=== PATIENT | male | born 1950 | race Asian ===

== ENCOUNTER 2024-05-04 16:21 | Outpatient (REF) | payer MEDICAID, SELFPAY ==
--- NOTE | ~2024-05-04 | XR_ITS ---
EXAMINATION: XR CHEST CLINICAL INFORMATION: J44.9 - Chronic obstructive pulmonary disease, unspecified COMPARISON: None available. TECHNIQUE: 2 views of the chest were obtained. FINDINGS: Hyperinflated lungs. Pulmonary reticular pattern. Bilateral apical lung scarring. No consolidation, pleural effusion or pneumothorax. Cardiomediastinal silhouette is normal in size with calcified plaque aortic arch. Multilevel thoracic spondylosis. S-shaped curvature of the thoracic spine. Vascular clips in the right upper quadrant abdomen. XR/XR chest 2V IMPRESSION: Chronic interstitial lung disease without acute airspace disease. Electronically signed by: Que Albarran MD 05/05/2024 07:22 AM EST
== END 2024-05-04 16:22 | disposition home or self-care (01) ==
LOC: HO.XRAY 16:21
PROVIDERS: PCP Nurse Practitioner Family; Visit Provider Internal Medicine
DX: J44.9 Chronic obstructive pulmonary disease, unspecified (principal); J84.9 Interstitial pulmonary disease, unspecified; R05.9 Cough, unspecified; R06.02 Shortness of breath; Z87.891 Personal history of nicotine dependence; Z79.899 Other long term (current) drug therapy
CPT/HCPCS: 71046; 99202

== ENCOUNTER → 2024-05-04 17:05 | Outpatient (BNV) | payer MEDICAID, SELFPAY | PROVIDERS: PCP Nurse Practitioner Family; Visit Provider Radiology Diagnostic Radiology | DX: J44.9 Chronic obstructive pulmonary disease, unspecified (principal) | CPT/HCPCS: 71046 ==

== ENCOUNTER 2024-06-01 09:25 | Outpatient (AMB) | payer MEDICAID, SELFPAY ==
[2024-06-01 09:31] VITALS: BP 102/50; PULSE 80; O2SAT 97; BMI 24.3
--- NOTE | 2024-06-01 09:31 | MHC.OFFVIS ---
Vital Signs 06/01/24 09:31 Height 5 ft 7 in Weight 155 lb 6.814 oz BMI 24.3 BP 102/50 L Blood Pressure Location Lt brachial Position Sitting Pulse 80 Pulse Source Pulse Oximeter Pulse Oximetry (%) 97 Oxygen Delivery Method Room Air Intake Visit Reasons: Cough Intake Note: pt is here for follow up and states he is better but still with a cough that has phlegm Medical Records Administrator Required: No Allergies No Known Allergies Allergy (Verified 06/01/24 09:57) Medication List - Last Reconciled 06/01/24 by Norma Loera MD albuterol sulfate 90 mcg/actuation (Ventolin HFA) 2 puffs inhalation Q4H PRN atorvastatin 20 mg PO BEDTIME budesonide-formoterol 160-4.5 mcg/actuation (Symbicort) 2 puffs inhalation BID Do you need a note to return to daycare/school/sports/work: No HPI HPI Cough: Details: This 74 years old very pleasant gentleman is here for follow-up. Since his last visit and using Symbicort twice a day his breathing did improve significantly. He has less shortness of breath on exertion. Cough was almost gone. Now for the last 2 days he is having a scratchy feeling in the throat with increased cough. Has difficulty in expectorating the mucus. [facility] Medical History (Updated 06/01/24 @ 10:06 by Norma Loera MD) ILD (interstitial lung disease) COPD (chronic obstructive pulmonary disease) Social History Patient Tobacco Use Status: Former Tobacco user Review of Systems Const All systems reviewed & are unremarkable except as noted in HPI and below Eyes Reports no additional complaints ENT Reports no additional complaints Card Denies chest pain, Denies irregular heart rhythm and Denies dyspnea on exertion Resp Reports as per HPI and Denies dyspnea on exertion GI Reports no additional complaints Reports nocturia Musc Reports no additional complaints Skin/Breast Reports system reviewed and no additional complaints, except as documented Psych Reports no additional complaints Endo Reports no additional complaints Aller/Immun Reports no additional complaints Physical Exam Vital Signs: Last Vital Signs Pulse 80 06/01/24 09:31 BP 102/50 L 06/01/24 09:31 Pulse Ox 97 06/01/24 09:31 Oxygen Delivery Method Room Air 06/01/24 09:31 BMI result Body Mass Index 24.3 Const General: healthy appearing, comfortable, no acute distress, alert and awake Orientation/consciousness: patient oriented x3 HEENT Head: Yes normal to inspection General nose exam: No nasal polyps present and No nasal discharge present Face and sinus: Yes sinuses nontender Mouth: oropharynx normal Throat: Yes posterior oropharynx normal Eyes General: appearance normal, both eyes and all related structures Neck Neck: Yes normal visual inspection, Yes no lymphadenopathy, Yes trachea midline and Yes no JVD Thyroid: Thyroid normal Chest Chest palpation & inspection: normal inspection of the chest, normal palpation of entire chest wall and no tenderness Resp Other: PERCUSSION NOTE IS RESONANT. BREATH SOUNDS ARE DISTANT WITH PROLONGED EXPIRATORY PHASE ON BOTH SIDES. NO WHEEZES OR RHONCHI ARE HEARD AT THIS TIME Cardio Palpation: normal PMI Rate: regular rate Rhythm: regular rhythm Heart sounds: no gallops and no murmurs Peripheral pulses: Peripheral pulses 2+ throughout GI Palpation (GI): Soft to palpation, nontender, No hepatosplenomegaly present and no masses Auscultation: normal bowel sounds Back/Spine/Pelvis Thoracic/Lumbar Spine: thoracic and lumbar spine normal to inspection Skin General skin exam: no rashes or lesions noted Neuro General: patient oriented x3 and no focal motor deficits Cranial nerves: Yes CN's II-XII intact bilaterally Extrem General: Yes normal to inspection, Yes no clubbing, cyanosis or edema and Yes no calf tenderness Psych Appearance: grossly normal and well kempt Speech and movement: Normal speech and movement present Results Reviewed Results Reviewed: Chest x-ray showed hyperinflation and increased bronchovascular markings on both sides suggesting possible interstitial disease in addition to COPD. On my review of the chest x-ray, I think it is increased bronchovascular markings with thickened bronchial jewell indicating chronic airway disorder. Spirometry on his last visit had shown moderate degree of obstructive airway disorder, but bronchodilator challenge and diffusion capacity etc. was not done. Assessment & Plan Assessment & Plan (1) COPD (chronic obstructive pulmonary disease): Comment: He has symptoms of dyspnea on exertion and intermittent cough. This has been going on for more than 20 years, while he was living in [place] . He was recently started on Symbicort 2 puffs b.i.d. which has helped. SPIROMETRY PERFORMED IN THE OFFICE TODAY IS CONSISTENT WITH MODERATELY SEVERE OBSTRUCTIVE AIRWAY DISORDER. With the use of Symbicort he has been feeling better. Today he appears to have increased bronchial irritation and may be coming with acute exacerbation. Code(s): J44.9 - Chronic obstructive pulmonary disease, unspecified Category: Medical Plan: I think we should get complete pulmonary function test to include lung volumes and diffusion capacity also. Continue Symbicort 160-4.52 puffs b.i.d.. Albuterol HFA 2 puffs Q 6 hours only p.r.n.. Mucinex 400 mg b.i.d. if he has any issue with the mucus. Will treat him with a short course of low-dose prednisone to avoid any acute exacerbation. Orders: Orders PFT pulmonary function test Today J44.9 - Chronic obstructive pulmonary disease, unspecified, J84.9 - Interstitial pulmonary disease, unspecified Medications: New prednisone 20 mg PO DAILY 7 tabs 0RF copd excerbation 7 days budesonide-formoterol 160-4.5 mcg/actuation 2 puffs inhalation BID 10.2 grams 5RF COPD 30 days Coding Level of Care Code Est Pt Level 3 (28909) Diagnoses COPD (chronic obstructive pulmonary disease) J44.9
--- OUTSIDE RECORDS SUMMARY | 2024-06-01 10:34 | XMS_ITS | Clinical Summary ---
Author Organization [facility] Address [address] [place] [address] Care Team Providers Care Timekeeping Supervisor Name Role Phone Unavailable Primary Care Provider Unavailabl e Source Comments PLEASE NOTE, if this patient is a minor, it may be UNLAWFUL to discuss sensitive information that is contained in these records (such as FAMILY PLANNING, MENTAL HEALTH or SUBSTANCE ABUSE) with the minor patient's parent or other person without the patient's specific authorization.[facility] Allergies No known active allergies Medications budesonide-formo teroL (SYMBICORT) 160-4.5 mcg/actuation inhalerIndicatio ns:Wheezing Inhale 2 Puffs into the lungs 2 (two) times daily 30.6 g 1 4 Active albuterol HFA 90 mcg/actuation inhalerIndicatio ns:Wheezing Inhale 2 Puffs into the lungs every 4 (four) hours as needed for wheezing 18 g 1 4 Active inhalational spacing deviceIndication s:Wheezing UAD 1 Each 1 4 Active tamsulosin (FLOMAX) 0.4 mg 24 hr capsuleIndicatio ns:Urinary incontinence, unspecified type Take 1 Capsule by mouth once daily 90 Capsule 1 4 Active atorvastatin (LIPITOR) 20 mg tabletIndication s:Hypercholester olemia Take 1 Tablet by mouth nightly at bedtime 90 Tablet 2 4 Active Active Problems Problem Noted Date Diagnosed Date Hypercholesterolemia 03/04/2024 Urinary incontinence 03/02/2024 Wheezing 03/02/2024 Prediabetes 03/02/2024 Encounters Date Type Department Care Team Description 03/04/2024 Interim Notes [address] [phone] Jethro Blue FNP Prediabetes (Primary Dx); Hypercholesterolemia from Last 3 Months Immunizations Name Administration Dates Next Due Hep B,adult,adjuvanted (HEPLISAV) 12/14/2023 Influenza (FLUZONE), high-dose, trivalent, PF PNEUMOCOCCAL CONJUGATE PCV 20 (Prevnar) 03/02/20 24 Social History Tobacco Use Types Packs/Day Years Used Date Smoking Tobacco: Former Cigarettes 1 24 0 03/30/1969 - 03/30/1993 Passive Smoke Exposure: Never Smokeless Tobacco: Never Alcohol Use Standard Drinks/Week Comments Never 0 (1 standard drink = 0.6 oz pur e alcohol) Social Connections Answer Date Recorded Connectedness 0 03/02/2024 Financial Resource Strain Answer Date R ecorded Financial Resource Strain 0 2023 Stress Answer Date Recorded Stress 0 03/02/2024 Physical Activity Answer Date Recorded Physical Activity 0 03/02/2024 Food Insecurity Answer Date Recorded Food 0 03/02/2024 Transportation Needs Answer Date Record ed Transportation 0 03/02/2024 Housing Stability Answer Date Recorded Housing 0 03/02/2024 Safety and Environment Answer Date Rusty rded Safety 0 03/02/2024 Utilities Answer Date Recorded Utilities 0 03/02/2024 Employment Answer Date Recorded Stress 0 03/02/2024 Sex and Gender Information Value Date Recorded Sex Assigned at Male 03/02/2024 7:52 AM PST Legal Sex Male 9:00 AM PST Gender Identity Male 03/02/2024 9:49 AM PST Sexual Orientation Straight 03/02/2024 7: 52 AM PST Last Filed Vital Signs Vital Sign Reading Time Taken Comments Blood Pressure 154/77 03/02/2024 10:50 AM EST Pulse 75 03/02/2024 10:50 AM EST Temperature 37.2 ??C (98.9 ??F) 03/02/2024 10:[address] Respiratory Rate 14 03/02/2024 10:50 AM EST Oxygen Saturation - - Inhaled Oxygen Concentration - - Weight 68.5 kg (151 lb) 03/02/2024 10:50 AM EST Height 175.3 cm (5' 9 ) 03/02/2024 10:50 AM EST Body Mass Index 22.3 03/02/2024 10:50 AM EST Plan of Treatment Health Maintenance Due Date Last Done Comments Imm-DTaP/Tdap/Td (1 - Tdap) 1970 CT Colonography 1996 Colonoscopy 1996 Colorectal Cancer Screening 1996 FIT/gFOBT 1996 Fecal DNA 1996 Flexible Sigmoidoscopy 1996 Imm-Zoster, Recombinant (1 of 2) 2001 Abdominal Aortic Aneurysm Screening 2016 Falls Prevention 2016 Tip-PUANW-28 ( season) 2023 Alcohol and Drug Screen 03/30/2024 Depression Annual Screen 03/30/2024 Diabetes Screening 03/02/2025 03/02/2024, 03/02/2024 Hypertension Screening (#1) 03/02/2025 Lipid Screening 03/02/2025 03/02/2024 Tobacco Screening 03/02/2025 03/02/2024 Hepatitis C Screening Completed 03/02/2024 Imm-Influenza Completed 03/02/2024 Imm-Pneumococcal 65+ Completed 03/02/2024 Procedures Procedure Name Priority Date/Time Associated Diagnosis Comments HEPATITIS C AB W/RFLX HCV RNA, QT, RT PCR Routine 03/02/2024 12:21 PM EST Prediabetes COMPREHENSIVE METABOLIC PANEL Routine 03/02/2024 12:21 PM EST Prediabetes LIPID PANEL Routine 03/02/2024 12:21 PM EST Prediabetes from Last 3 Months or Most Recently Relevant to Health Maintenance Results * HEPATITIS C AB W/RFLX HCV RNA, QT, RT PCR (03/02/2024 12:21 PM EST) HEPATITIS C ANTIBODY NON-REACT BHUMI NON-REACT BHUMI [facility] Comment: HCV antibody was non-reactive. There is no laboratory evidence of HCV infection. In most cases, no further action is required. However, if recent HCV exposure is suspected, a test for HCV RNA (test code 98496) is suggested. For additional information please refer to http://education.Deluux/faq/FQU54g0 (This link is being provided for informational/ educational purposes only.) Blood Blood / Unknown 03/02/2024 1 2:21 PM EST 03/02/2024 12:22 PM EST Narrative [facility] - 03/04/2024 6:21 PM EST FASTING:NO Jethro Blue [facility] - BLOOD DRAW Edited R esult - Final [facility] [address] [address], [facility] [address] [place] [address] * (ABNORMAL) LIPID PANEL (03/02/2024 12:21 PM EST) [facility] CHOLESTEROL, TOTAL 232(H) <200 mg/dL [facility] HDL CHOLESTEROL 41 > OR = 40 mg/dL [facility] TRIGLYCERIDES 193(H) <150 mg/dL [facility] LDL-CHOLESTEROL 156(H) 99 mg/dL (calc) [facility] Comment: Reference range: <100 Desirable range <100 mg/dL for primary prevention; ?? <70 mg/dL for patients with CHD or diabetic patients with > or = 2 CHD risk factors. LDL-C is now calculated using the Nick-Chayito calculation, which is a validated novel method providing better accuracy than the Friedewald equation in the estimation of LDL-C. Nick SS et al. DELMAR. 2013;310(19): 7246-2515 (http://education.Kybalion/faq/YIZ906) CHOL/HDLC RATIO 5.7(H) <5.0 (calc) [facility] NON-HDL CHOLESTEROL 191(H) <130 mg/dL (calc) [facility] Comment: For patients with diabetes plus 1 major ASCVD risk factor, treating to a non-HDL-C goal of <100 mg/dL (LDL-C of <70 mg/dL) is considered a therapeutic option. Blood Blood / Unknown 03/02/2024 1 2:21 PM EST 03/02/2024 12:22 PM EST Narrative [facility] - 03/04/2024 6:21 PM EST FASTING:NO Jethro Blue [facility] - BLOOD DRAW Final Re sult Performing Organization Address [facility] de Phone Number [facility] [address] [address], [facility] [address] [place] [address] * (ABNORMAL) COMPREHENSIVE METABOLIC PANEL (03/02/2024 12:21 PM EST) GLUCOSE 88 65 - 139 mg/dL [facility] Comment: ?Non-fasting reference interval UREA NITROGEN (BUN) 22 7 - 25 mg/dL [facility] CREATININE (blood) 1.66(H) 0.70 - 1.28 mg/dL [facility] EGFR 44(L) > OR = 60 mL/min/1. 73m2 [facility] BUN/CREATININE RATIO 13 6 - 22 (calc) [facility] SODIUM 140 135 - 146 mmol/L [facility] POTASSIUM 5.1 3.5 - 5.3 mmol/L [facility] CHLORIDE 104 98 - 110 mmol/L [facility] CARBON DIOXIDE 29 20 - 32 mmol/L [facility] CALCIUM 9.8 8.6 - 10.3 mg/dL [facility] PROTEIN, TOTAL 7.4 6.1 - 8.1 g/dL [facility] ALBUMIN 5.0 3.6 - 5.1 g/dL [facility] GLOBULIN 2.4 1.9 - 3.7 g/dL (calc) [facility] ALBUMIN/GLOBULI N RATIO 2.1 1.0 - 2.5 (calc) [facility] BILIRUBIN, TOTAL 0.7 0.2 - 1.2 mg/dL [facility] ALKALINE PHOSPHATASE 62 35 - 144 U/L [facility] AST 25 10 - 35 U/L [facility] ALT 22 9 - 46 U/L [facility] Blood Blood / Unknown 03/02/2024 1 2:21 PM EST 03/02/2024 12:22 PM EST Narrative [facility] - 03/04/2024 6:21 PM EST FASTING:NO us Jethro Blue [employer] [facility] - BLOOD DRAW Edited R esult - Final Performing Organization Address City/[facility]/ZIP Co de Phone Number [facility] [address] [address], [facility] [address] [place] [address] from Last 3 Months or Most Recently Relevant to Health Maintenance Insurance [place] MEDICAID
== END 2024-06-01 10:00 | disposition home or self-care (01) ==
PROVIDERS: PCP Nurse Practitioner Family; Visit Provider Internal Medicine
DX: J44.9 Chronic obstructive pulmonary disease, unspecified (principal)
CPT/HCPCS: 99213

== ENCOUNTER → 2024-06-01 09:25 | Outpatient (BNVA) | payer MEDICAID, SELFPAY | PROVIDERS: PCP Nurse Practitioner Family; Visit Provider Internal Medicine | DX: J44.9 Chronic obstructive pulmonary disease, unspecified (principal); J84.9 Interstitial pulmonary disease, unspecified | CPT/HCPCS: 99212 ==

== ENCOUNTER 2025-01-12 09:17 | Outpatient (AMB) | payer MEDICAID, SELFPAY ==
[2025-01-12 09:27] VITALS: BP 110/58; PULSE 71; O2SAT 98; BMI 25.2
--- NOTE | 2025-01-12 09:27 | A.OFFVIS_ITS ---
Vital Signs 01/12/25 09:27 Height 5 ft 7 in Weight 160 lb 14.999 oz BMI 25.2 BP 110/58 L Blood Pressure Location Lt brachial Position Sitting Pulse 71 Pulse Source Pulse Oximeter Pulse Oximetry (%) 98 Oxygen Delivery Method Room Air Intake Visit Reasons: Cough Intake Note: pt is here for follow up visit Control Room Tender Required: No Plain Clothes Police Officer: Plain Clothes Police Officer offered & declined Allergies No Known Allergies Allergy (Verified 01/12/25 09:33) Medication List - Last Reconciled 01/12/25 by Norma Loera MD albuterol sulfate 90 mcg/actuation (Ventolin HFA) 2 puffs inhalation Q4H PRN atorvastatin 20 mg PO BEDTIME budesonide-formoterol 160-4.5 mcg/actuation 2 puffs inhalation BID 30 days inhalational spacing device ([employer] [facility] spacer) As directed tamsulosin 0.4 mg PO DAILY Do you need a note to return to daycare/school/sports/work: No HPI HPI Cough: Details: 74 years old gentleman, originally from [place], with remote past history of smoking, has moderately severe obstructive airway disorder. He is here for routine follow-up. [place] did have a bout of sore throat and cough which has resolved. He continues to use Symbicort 2 puffs b.i.d. regularly and Ventolin 2 puffs Q 6 hours only p.r.n. ( which is not that frequent) At present he is very stable, Has dry cough once in a while. [facility] Medical History ILD (interstitial lung disease) COPD (chronic obstructive pulmonary disease) Social History Patient Tobacco Use Status: Former Tobacco user Review of Systems Const All systems reviewed & are unremarkable except as noted in HPI and below Eyes Reports no additional complaints ENT Reports no additional complaints Card Denies chest pain, Denies irregular heart rhythm and Denies dyspnea on exertion Resp Reports as per HPI and Denies dyspnea on exertion GI Reports no additional complaints Reports nocturia Musc Reports no additional complaints Skin/Breast Reports system reviewed and no additional complaints, except as documented Psych Reports no additional complaints Endo Reports no additional complaints Aller/Immun Reports no additional complaints Physical Exam Vital Signs: Last Vital Signs Pulse 71 01/12/25 09:27 BP 110/58 L 01/12/25 09:27 Pulse Ox 98 01/12/25 09:27 Oxygen Delivery Method Room Air 01/12/25 09:27 BMI result Body Mass Index 25.2 Const General: healthy appearing, comfortable, no acute distress, alert and awake Orientation/consciousness: patient oriented x3 HEENT Head: Yes normal to inspection General nose exam: No nasal polyps present and No nasal discharge present Face and sinus: Yes sinuses nontender Mouth: oropharynx normal Throat: Yes posterior oropharynx normal Eyes General: appearance normal, both eyes and all related structures Neck Neck: Yes normal visual inspection, Yes no lymphadenopathy, Yes trachea midline and Yes no JVD Thyroid: Thyroid normal Chest Chest palpation & inspection: normal inspection of the chest, normal palpation of entire chest wall and no tenderness Resp Other: PERCUSSION NOTE IS RESONANT. BREATH SOUNDS ARE DISTANT WITH PROLONGED EXPIRATORY PHASE ON BOTH SIDES. NO WHEEZES OR RHONCHI ARE HEARD AT THIS TIME Cardio Palpation: normal PMI Rate: regular rate Rhythm: regular rhythm Heart sounds: no gallops and no murmurs Peripheral pulses: Peripheral pulses 2+ throughout GI Palpation (GI): Soft to palpation, nontender, No hepatosplenomegaly present and no masses Auscultation: normal bowel sounds Back/Spine/Pelvis Thoracic/Lumbar Spine: thoracic and lumbar spine normal to inspection Skin General skin exam: no rashes or lesions noted Neuro General: patient oriented x3 and no focal motor deficits Cranial nerves: Yes CN's II-XII intact bilaterally Extrem General: Yes normal to inspection, Yes no clubbing, cyanosis or edema and Yes no calf tenderness Psych Appearance: grossly normal and well kempt Speech and movement: Normal speech and movement present Assessment & Plan Assessment & Plan (1) COPD (chronic obstructive pulmonary disease): Comment: He has symptoms of dyspnea on exertion and intermittent cough. This has been going on for more than 20 years, while he was living in [place] . His symptoms of dyspnea on exertion and cough have been much better since he is on maintenance dose of Symbicort. He needs to use albuterol HFA only sparingly. Does have bouts of cough mainly when he is traveling or if there is change in the weather. Code(s): J44.9 - Chronic obstructive pulmonary disease, unspecified Category: Medical Plan: Continue Symbicort 160-4.52 puffs b.i.d. regularly Albuterol HFA( Ventolin) 2 puffs Q 4-6 hours p.r.n.. May use Mucinex 400 mg b.i.d. p.r.n. for mucus . (2) ILD (interstitial lung disease): Comment: Some fibrotic changes in both upper lobes have been noted on the plain x-ray. He does not have generalized interstitial lung disease. Code(s): J84.9 - Interstitial pulmonary disease, unspecified Category: Medical Plan: No treatment needed. HOWEVER PATIENT NEEDS TO HAVE COMPLETE PULMONARY FUNCTION TEST WHICH IS ORDERED. Coding Level of Care Code Est Pt Level 3 (50944) Diagnoses COPD (chronic obstructive pulmonary disease) J44.9 ILD (interstitial lung disease) J84.9
--- OUTSIDE RECORDS SUMMARY | 2025-01-12 10:30 | XMS_ITS | Clinical Summary ---
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 Role Phone Unavailable Primary Care Provider [...] times daily 30.6 g 1 4 Active inhalational spacing deviceIndication s:Wheezing UAD 1 Each 1 4 Active atorvastatin (LIPITOR) 20 mg tabletIndication s:Hypercholester olemia Take 1 Tablet by mouth nightly at bedtime 90 Tablet 2 4 Active albuterol HFA (VENTOLIN HFA) 90 mcg/actuation inhalerIndicatio ns:Wheezing INHALE 2 PUFFS INTO THE LUNGS EVERY 4 HOURS NEEDED FOR WHEEZE 18 Each 5 Active tamsulosin (FLOMAX) 0.4 mg 24 hr capsuleIndicatio ns:Urinary incontinence, unspecified type TAKE 1 CAPSULE BY MOUTH EVERY DAY 90 Capsule 1 5 Active compr.heaven aguila long, largeIn dications:Varico se veins of both lower extremities with pain Compress 10-15 mmHg for varicose veins. Disp 2 x99 years. 2 Each 5 Active Active Problems Problem Noted Date Diagnosed Date Hypercholesterolemia 03/04/2024 Urinary incontinence 03/02/2024 Wheezing 03/02/2024 Prediabetes 03/02/2024 Encounters Date Type Department Care Team Description 12/12/2024 1:00 PM EDT Office Visit [address] [phone] Child, JAKE Bethea from Last 3 Months Immunizations Immunization Administration Dates Next Due Hep B,adult,adjuvanted (HEPLISAV) 12/14/2023 Influenza (FLUZONE), high-dose, trivalent, PF PNEUMOCOCCAL CONJUGATE PCV 20 (Prevnar 20) 03/02 Social History Tobacco Use Types Packs/Day Years Used Date Smoking Tobacco: Former Cigarettes 1 24 0 03/30/1969 - 03/30/1993 Passive Smoke Exposure: Never Smokeless Tobacco: Never Tobacco Cessation:Counseling Given: Not Answered Alcohol Use Standard Drinks/Week Comments Never 0 [...] Sign Reading Time Taken Comments Blood Pressure 120/80 12/12/2024 1:15 PM EDT Pulse 86 12/12/2024 1:15 PM EDT Temperature 36.8 C (98.3 F) 12/12/2024 1:15 PM EDT Respiratory Rate 14 12/12/2024 1:15 PM EDT Oxygen Saturation 98% 07/29/2024 8:54 AM EDT Inhaled Oxygen Concentration - - Weight 72.6 kg (160 lb) 12/12/2024 1:15 PM EDT Height 175.3 cm (5' 9 ) 07/29/2024 8:54 AM EDT Body Mass Index 23.63 07/29/2024 8:54 AM EDT Plan of Treatment Health Maintenance Due Date Last Done Comments CT Colonography 1996 Colonoscopy 1996 Colorectal Cancer Screening 1996 FIT/gFOBT 1996 Fecal DNA 1996 Flexible Sigmoidoscopy 1996 Abdominal Aortic Aneurysm Screening 2016 Falls Prevention 2016 [id number] (2023- season) 2025 025, 07/27/2024 Diabetes Screening 03/02/2025 03/02/2024, 03/02/2024 Lipid Screening 03/02/2025 03/02/2024 Hypertension Screening (#1) 12/12/2025 Tobacco Screening 12/12/2025 12/12/2024 Imm-DTaP/Tdap/Td (2 - Td or Tdap) 07/27/2034 025 Hepatitis C Screening Completed 03/02/2024 Imm-Pneumococcal 50+ Completed 03/02/2024 Alcohol and Drug Screen Completed 07/29/2024 Depression Annual Screen Completed 07/29/2024 Imm-Influenza Completed 12/15/2024, 03/02/2024 Imm-Zoster, Recombinant Completed 12/15/2024, 07/27 Procedures Procedure Name Priority Date/Time Associated Diagnosis [...] QT, RT PCR (03/02/2024 12:21 PM EST) Pathologist [facility] HEPATITIS C ANTIBODY NON-REACT BHUMI NON-REACT BHUMI [facility] Comment: HCV antibody was non-reactive. There is no laboratory evidence of HCV infection. In most cases, no further action is required. However, if recent HCV exposure is suspected, a test for HCV RNA (test code 36777) is suggested. For additional information please refer to http://Legal Shine.[employer]/faq/LOE41y7 (This link is being provided for informational/ educational purposes only.) Blood Blood / Unknown 03/02/2024 1 2:21 PM EST 03/02/2024 12:22 PM EST Narrative [facility] [employer] - 03/04/2024 6:21 PM EST FASTING:NO Jethro [facility] - BLOOD DRAW Edited R esult - Final [facility] [address] [place] [id number], [facility] [address] [address] * (ABNORMAL) LIPID PANEL (03/02/2024 12:21 PM EST) CHOLESTEROL, TOTAL 232(H) <200 mg/dL [facility] HDL CHOLESTEROL 41 > OR = 40 mg/dL [facility] TRIGLYCERIDES 193(H) <150 mg/dL [facility] LDL-CHOLESTEROL 156(H) 99 mg/dL (calc) [facility] Comment: Reference range: <100 Desirable range <100 mg/dL for primary prevention; <70 mg/dL for patients with CHD or diabetic patients with > or = 2 CHD risk factors. LDL-C is now calculated using the Nick-Chayito calculation, which is a validated novel method providing better accuracy than the Friedewald equation in the estimation of LDL-C. Nick SS et al. DELMAR. 2013;310(19): 7682-8223 (http://education.Popcorn5.SwypeShield/faq/PFM669) CHOL/HDLC RATIO 5.7(H) <5.0 (calc) [facility] NON-HDL CHOLESTEROL 191(H) <130 mg/dL (calc) [facility] Comment: For patients with diabetes plus 1 major ASCVD risk factor, treating to a non-HDL-C goal of <100 mg/dL (LDL-C of <70 mg/dL) is considered a therapeutic option. Blood Blood / Unknown 03/02/2024 1 2:21 PM EST 03/02/2024 12:22 PM EST Narrative [facility] - 03/04/2024 6:21 PM EST FASTING:NO Jethro Blue [facility] - BLOOD DRAW Final Re sult [facility] [address] [address], [facility] [address] [place] [address] * (ABNORMAL) COMPREHENSIVE METABOLIC PANEL (03/02/2024 12:21 PM EST) GLUCOSE 88 65 - 139 mg/dL [facility] Comment: Non-fasting reference interval UREA NITROGEN (BUN) 22 7 - 25 mg/dL [facility] CREATININE (blood) 1.66(H) 0.70 - 1.28 mg/dL [facility] EGFR 44(L) > OR = 60 mL/min/1. 73m2 [facility] BUN/CREATININE RATIO 13 6 - 22 (calc) [facility] SODIUM 140 135 - 146 mmol/L [facility] POTASSIUM 5.1 3.5 - 5.3 mmol/L [facility] CHLORIDE 104 98 - 110 mmol/L [facility] CARBON DIOXIDE 29 20 - 32 mmol/L [facility] CALCIUM 9.8 8.6 - 10.3 mg/dL [facility] PROTEIN, TOTAL 7.4 6.1 - 8.1 g/dL [facility] ALBUMIN 5.0 3.6 - 5.1 g/dL [facility] GLOBULIN 2.4 1.9 - 3.7 g/dL (calc) [facility] ALBUMIN/GLOBULI N RATIO 2.1 1.0 - 2.5 (calc) [facility] BILIRUBIN, TOTAL 0.7 0.2 - 1.2 mg/dL [facility] ALKALINE PHOSPHATASE 62 35 - 144 U/L [facility] AST 25 10 - 35 U/L [facility] ALT 22 9 - 46 U/L [facility] Blood Blood / Unknown 03/02/2024 1 2:21 PM EST 03/02/2024 12:22 PM EST Narrative [facility] - 03/04/2024 6:21 PM EST FASTING:NO Jethro Mirza [facility] - BLOOD DRAW Edited R esult - Final [facility] [place] [employer] [address] [address], [facility] [address] [place] [address] from Last 3 Months or Most Recently Relevant to Health Maintenance Insurance [place] MEDICAID
== END 2025-01-12 09:54 | disposition home or self-care (01) ==
LOC: HO.HPS 09:17
PROVIDERS: PCP Nurse Practitioner Family; Visit Provider Internal Medicine
DX: J44.9 Chronic obstructive pulmonary disease, unspecified (principal); J84.9 Interstitial pulmonary disease, unspecified
CPT/HCPCS: 99213

== ENCOUNTER → 2025-01-12 09:17 | Outpatient (BNVA) | payer MEDICAID, SELFPAY | PROVIDERS: PCP Nurse Practitioner Family; Visit Provider Internal Medicine | DX: J44.9 Chronic obstructive pulmonary disease, unspecified (principal); J84.9 Interstitial pulmonary disease, unspecified; Z87.891 Personal history of nicotine dependence; R05.9 Cough, unspecified | CPT/HCPCS: 99212 ==

== ENCOUNTER 2025-03-17 11:08 | Outpatient (REF) | payer MEDICAID, SELFPAY ==
--- NOTE | 2025-03-17 11:11 | PFT_ITS ---
Flows: FEV1: 63 % of predicted at 1.61 L FVC: 97 % of predicted at 3.17 L FEV1/FVC: 51 % Bronchodilator response: Present in small to medium airways only Volumes: Total lung capacity: 72 % of predicted at 4.63 L Residual volume: 65 % of predicted at 1.54 L Slow vital capacity: 78 % of predicted at 3.08 L Expiratory reserve volume: 76 % of predicted at 0.81 L Diffusion capacity: Mildly decreased Impression: Moderate obstructive and moderate restrictive ventilatory defects with bronchodilator response present in small to medium airways only. Decreased diffusion capacity suggests emphysema. MTDD
== END 2025-03-17 11:09 | disposition home or self-care (01) ==
LOC: HO.RESP 11:08
PROVIDERS: Visit Provider Internal Medicine
DX: J84.9 Interstitial pulmonary disease, unspecified (principal); J44.9 Chronic obstructive pulmonary disease, unspecified
CPT/HCPCS: 94060; 94727; 94729

== ENCOUNTER → 2025-03-17 11:11 | Outpatient (BNV) | payer MEDICAID, SELFPAY | PROVIDERS: Visit Provider Internal Medicine Pulmonary Disease | DX: J98.4 Other disorders of lung (principal) | CPT/HCPCS: 94060; 94727; 94729 ==

== ENCOUNTER 2025-03-20 15:47 | Outpatient (AMB) | payer MEDICAID, SELFPAY ==
--- NOTE | 2025-03-20 16:07 | A.OFFVIS_ITS ---
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 He smoked for many years and was diagnosed with COPD and has been taking some medicines to manage his breathing issues. More recently has noted that he was forgetting. He has forgotten things that he used to remember including his prayers. He was forgetting names of people he knew. There was no sign of any significant anxiety or depression or any other behavioral symptoms. He was not under any serious stress at this time. There was no history of alcohol or drug use. There was no history of any significant head injury. He had an episode few years ago when he was in [place] when he was reading a newspaper and something happened. Next thing he remembered he woke up in hospital. He was told that he had a stroke. He did not remember having any physical symptoms from that episode. That kind of episode has not recurred. [facility] Medical History ILD (interstitial lung disease) COPD (chronic obstructive pulmonary disease) Social History Patient Tobacco Use Status: Former Tobacco user Review of Systems Narrative Constitutional:?No fever, chills, fatigue, weight loss, or night sweats. HEENT:?No headache, vision changes, hearing loss, nasal congestion, sore throat. Cardiovascular:?No chest pain, palpitations, orthopnea, PND, or leg swelling. Respiratory:? Complain of shortness of breath. Gastrointestinal:?No nausea, vomiting, abdominal pain, diarrhea, or constipation. Genitourinary:?No dysuria, frequency, incontinence, or hematuria. Musculoskeletal:?No joint pain, stiffness, weakness, or muscle aches. Neurological:? Complain of forgetfulness. Psychiatric:?No anxiety, depression, mood swings, sleep disturbance, or hallucinations. Endocrine:?No heat/cold intolerance, polydipsia, polyuria, or hair/skin changes. Hematologic/Lymphatic:?No easy bruising, bleeding, or lymphadenopathy. Integumentary (Skin):?No rash, lesions, itching, or color changes. Allergic/Immunologic:?No seasonal allergies, hives, or recurrent infections. Physical Exam Neuro Other: Mental Status: Alert and oriented to person, place, and time. Normal attention. Normal sponta neous speech, fluency, and comprehension. Cranial Nerves: CN II: Visual mcgregor full to confrontation, visual acuity intact. CN III, IV, : Pupils equal, round, reactive to light and accommodation. Extraocular movements are normal. CN V: Facial sensation is normal. CN VII: Facial movements symmetrical. CN VIII: Hearing intact to bedside conversation is normal. CN IX, X: Palate elevates symmetrically. CN XI: Shoulder shrug and head turn symmetrical. CN XII: Tongue midline without atrophy or fasciculations. Motor: Bulk and tone normal in all extremities. No significant muscle weakness in arms and legs. No drift. Reflexes: Deep tendon reflexes trace and symmetric. Plantar response down-going bilaterally. Coordination: Ryccun-rq-reky and rpdt-bw-rptt testing normal. No dysmetria. Gait and Station: No obvious gait abnormality. No ataxia or instability. Extrapyramidal: Full facial expressions and blinking. No rigidity. Movements are appropriate with no tremor or abnormality. Speech: Normal; no dysarthria or tremor. Assessment & Plan Assessment & Plan (1) MCI (mild cognitive impairment): Code(s): G31.84 - Mild cognitive impairment of uncertain or unknown etiology Category: Medical Plan Impression: a: Mild cognitive impairment of amnestic type b: An episode of confusion or amnesia a few years ago when he was told that he had a stroke Rec: a: B12/folate/abeta amyloid test b: MRI brain WO Re Orders: Orders Vitamin B12 and Folate Today G31.84 - Mild cognitive impairment of uncertain or unknown etiology ABeta 42/40 p-tau 217 Eval Today G31.84 - Mild cognitive impairment of uncertain or unknown etiology MR head/brain wo con Today G31.84 - Mild cognitive impairment of uncertain or unknown etiology Coding Level of Care Code New Pt Level 4 (33753) Diagnoses MCI (mild cognitive impairment) G31.84
== END 2025-03-20 16:17 | disposition home or self-care (01) ==
LOC: HO.HSM 15:47
PROVIDERS: PCP Nurse Practitioner Family; Visit Provider Psychiatry & Neurology Neurology
DX: G31.84 Mild cognitive impairment of uncertain or unknown etiology (principal)
CPT/HCPCS: 99204

== ENCOUNTER 2025-03-20 15:47 | Outpatient (REF) | payer MEDICAID, SELFPAY ==
[2025-03-20 18:24] LABS: Folate 10.0 ng/mL (> or = 4.0); Vitamin B12 256 pg/mL (200-900)
== END 2025-03-20 15:48 | disposition home or self-care (01) ==
LOC: HO.LAB 15:47
PROVIDERS: PCP Nurse Practitioner Family; Visit Provider Psychiatry & Neurology Neurology
DX: G31.84 Mild cognitive impairment of uncertain or unknown etiology (principal)
CPT/HCPCS: 36415; 82233; 82234; 82607; 82746; 84393; 99202